=== PATIENT | male | born 1970 | race Caucasian/White ===

== ENCOUNTER → 2020-12-28 | Outpatient (CLI) | payer OTHER ==
[~2020-12-28] MED LIST: LISI10TA16 PO
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
== END | disposition home or self-care (01) ==
LOC: PNCL 10:14
PROVIDERS: ATTEND Anesthesiology
DX: R10.9 Unspecified abdominal pain (principal); M54.5 Low back pain; Z79.899 Other long term (current) drug therapy
CPT/HCPCS: G0463

== ENCOUNTER → 2021-01-19 | Outpatient (CLI) | payer OTHER ==
--- NOTE | 2021-01-19 13:17 | KCIC ---
MRI THORACIC SPINE WO, MR LUMBAR SPINE WO -[id number] Date: 01/19/2021 10:20 AM Indication: Lumbar radiculopathy, thoracic radiculopathy. Left sided flank pain for over one yr, sha rp at times. Comparison: Lumbar spine radiograph 10/10/2020. Technique: Multi-planar multi-weighted magnetic resonance imaging of the thoracic and lumbar spine wa s performed without intravenous contrast using the standard spine protocol. FINDINGS: The thoracic and lumbar spine are normally aligned. No acute fracture. Chronic T11 compression deform ity with 10 percent height loss. Chronic T12 compression deformity with 40 percent height loss. Trace edema anteriorly at T11 and T12, likely degenerative. Mild multilevel degenerative disc desiccation and disc height loss. The conus terminates at a normal level. No abnormal signal is seen within the visualized spinal cord. No clumping of intrathecal nerve roots. No soft tissue abnormality in the visualized abdomen or pelvis. Thoracic: Few tiny disc bulges. No significant spinal canal stenosis or neural foraminal narrowing. T12-L1: No disc bulge. No facet arthropathy. No significant spinal stenosis or neural foraminal narro wing. L1-L2: No disc bulge. No facet arthropathy. No significant spinal stenosis or neural foraminal narrow ing. L2-L3: No disc bulge. No facet arthropathy. No significant spinal stenosis or neural foraminal narrow ing. L3-L4: Disc bulge. Mild facet arthropathy. No significant spinal stenosis or neural foraminal narrowi ng. L4-L5: Disc bulge. Moderate facet arthropathy. No significant spinal stenosis or neural foraminal ryann rowing. L5-S1: Disc bulge. Mild facet arthropathy. No significant spinal stenosis or neural foraminal narrowi ng. IMPRESSION: Mild thoracolumbar spondylosis, as detailed above. Electronically signed by: Tevin Black MD (01/19/2021 1:14 PM) [id number]
== END ==
LOC: KCIC MRI 09:48
PROVIDERS: ATTEND Anesthesiology
DX: M47.815 Spondylosis without myelopathy or radiculopathy, thoracolumbar region (principal); M54.15 Radiculopathy, thoracolumbar region; M51.86 Other intervertebral disc disorders, lumbar region
CPT/HCPCS: 72146; 72148

== ENCOUNTER → 2021-02-21 | Outpatient (CLI) | payer OTHER ==
[~2021-02-21] MED LIST changes: +IOHEXOL 180 MG/ML 10 ML VIAL. ONE; +methylPREDNISolone ACETATE 80 MG/ML VIAL. ONE
--- NOTE | 2021-02-21 12:29 | PDOC ---
Progress Note - Pain Clinic Date of Service: DOS: DATE: 02/21/21 TIME: 12:25 Diagnosis: Dx: Thoracic radiculopathy with thoracic degenerative disc disease compression fracture History or Present Illness: HPI: 50-year-old male returns for follow-up status post evaluation and complaints of pain left flank and lower flank with T12 compression fracture and thoracic radiculopathy. We ordered MRI scan and does return today we discussed the results with the patient today as well showing T12 compression fracture with 40% height loss and chronic T11 compression deformity with 10% height loss lumbar spine showing disc bulge L3-4 L4-5 L5-S1 with mild to moderate facet arthropathy without significant stenosis. Patient reports still significant pain in the left flank and mid to low back on the left side radiating laterally to the mid axillary line patient ports aching and dull worse with walking standing changing positions getting up from position standing to sitting etc. patient reports it wakes him from sleep sporadically but not every night patient reports no loss of motor function no bowel or bladder incontinence. We did try Medrol Dosepak which she reports helped for a few days about 50% decreasing the pain. Patient describes now as aching and dull in the back itself radiating shooting into the side. Patient rates a 3 on scale 10 is worse over the past week 2 on average 1 its least is a 2 today. Patient reports no motor deficits. Physical Exam: VS: Blood pressure is 141/93 pulse 83 respirations 16 temperature 98.2 F height 5 inches weight is 226 pounds PE: PHYSICAL EXAMINATION: GENERAL: The patient is awake, alert, oriented, appropriate, very pleasant in demeanor HEENT: Shows normocephalic, atraumatic. Extraocular movements are intact and symmetrical. Oral cavity: Mucous membranes moist and pink. Dentition is intact. NECK: Shows anterior throat supple without palpable lymphadenopathy noted. Swallow reflex symmetrical. CHEST: Shows normal on inspection. Breath sounds are clear bilaterally, distant but no rales or rhonchi. HEART: Shows S1, S2 clear. No murmurs auscultated. ABDOMEN: Soft, nontender, nondistended. No palpable organomegaly is noted. BACK: Shows spine grossly in the midline. Normal-appearing cervical lordotic curvature. There is slightly increased thoracic kyphosis, some minor flattening of the lumbar lordotic curvature. Lumbar paraspinous muscles show symmetrical on inspection, on palpation shows some moderate tenderness diffusely throughout the upper, middle and lower distribution of the paraspinous muscles, but without specific trigger points, without radiation of pain. The patient has good rotational motion of the lumbar spine, both laterally as well as extension and flexion without significant difficulty. No tenderness over the spinous processes, sacrum or sacroiliac regions. EXTREMITIES: Lower extremities show deep tendon reflexes 2+ in the patellar and tendo calcaneus tendons. Motor exam is 5 on a scale of 5 with right dorsiflexion, extension, quadriceps and hamstring flexion and 5/5 on the left. Peripheral pulses are 1+ posterior tibial. No peripheral edema is noted juan aterally. Lower extremities are warm and dry. SKIN: Shows warm and dry, good turgor. No edema. No sores, rashes or bruising throughout. Procedure: Procedure: Options were discussed with the patient. Patient's old chart was reviewed his his current medication regimen updated current review of systems updated today as well. We will proceed with a thoracic epidural steroid injection today with fluoroscopic guidance. Risks were discussed including but not limited to: Bleed ing, infection, possibility of epidural hematoma and subsequent neurological compromise, dural puncture, headaches, spinal cord and/or nerve damage, side effects of steroid medication, and poor results regarding pain control. Patient understands and wished to proceed. Patient will return to clinic in approximately 2 weeks for follow-up, was counseled as to return appointment, act ivity level, and side effect to be aware of. Medication Injected: Med Injected: Procedure is thoracic epidural steroid injection under local anesthetic using sterile prep and drape at the T11-12 level using C-arm fluoroscopic guidance in both AP and lateral views medications injected is 120 mg Depo-Medrol +10mL preservative-free normal saline and 2 mL contrast- condition at discharge is stable patient tolerated procedure well had no complications. Condition at Discharge: Condition at Discharge: Condition at discharge is stable, patient already the procedure well and had no complications. BISHOP GONZALEZ MD Feb 21, 2021 12:29
--- NOTE | 2021-02-21 12:30 | PDOC4 ---
Procedure Note: ICD 10 Code: ICD 10 Code: M54.14 M51.34 Procedure Note: Patient was consented for thoracic epidural steroid injection with fluoroscopic guidance. Risks were discussed including but not limited to: Bleeding, infection, possibility of epidural hematoma and subsequent neurological compromise, dural puncture, headaches, spinal cord and/or nerve damage, side effects of steroid medication, and poor results regarding pain control. Patient understands and wished to proceed. Procedure is thoracic epidural steroid injection under local anesthetic using sterile prep and drape at the T11-12 level using C-arm fluoroscopic guidance in both AP and lateral views medications injected is 120 mg Depo-Medrol +10mL preservative-free normal saline and 2 mL contrast- condition at discharge is stable patient tolerated procedure well had no complications. BISHOP GONZALEZ MD Feb 21, 2021 12:29
== END | disposition home or self-care (01) ==
LOC: PNCL 10:55
PROVIDERS: ATTEND Anesthesiology
DX: M51.34 Other intervertebral disc degeneration, thoracic region (principal); M48.54XA Collapsed vertebra, not elsewhere classified, thoracic region, initial encounter for fracture; Z79.899 Other long term (current) drug therapy; Z98.890 Other specified postprocedural states
CPT/HCPCS: 62321; J1040; Q9965